=== PATIENT | male | born 1980 | race Caucasian/White ===

== ENCOUNTER 2016-08-03 16:06 | Emergency (ER) | payer MEDICAID | END 2016-08-03 20:30 | disposition home or self-care (01) | LOC: D.ER 16:06 | DX: M79.1 Myalgia (principal); I33.0 Acute and subacute infective endocarditis; F17.200 Nicotine dependence, unspecified, uncomplicated ==

== ENCOUNTER 2016-09-10 05:29 | Emergency (ER) | payer OTHER | END 2016-09-10 06:07 | disposition home or self-care (01) | LOC: D.ER 05:29 | DX: K08.89 Other specified disorders of teeth and supporting structures (principal); K02.9 Dental caries, unspecified; F17.200 Nicotine dependence, unspecified, uncomplicated ==

== ENCOUNTER 2016-10-02 12:00 | Emergency (ER) | payer MEDICAID | END 2016-10-02 12:30 | disposition left against medical advice (07) | LOC: D.ER 12:00 | DX: Z02.9 Encounter for administrative examinations, unspecified (principal) ==

== ENCOUNTER 2016-10-02 14:10 | Emergency (ER) | payer OTHER | END 2016-10-02 18:00 | disposition left against medical advice (07) | LOC: D.ER 14:10 | DX: Z02.9 Encounter for administrative examinations, unspecified (principal) ==

== ENCOUNTER 2016-10-04 08:51 | Emergency (ER) | payer OTHER | END 2016-10-04 09:39 | disposition home or self-care (01) | LOC: D.ER 08:51 | DX: K02.9 Dental caries, unspecified (principal); K08.89 Other specified disorders of teeth and supporting structures ==

== ENCOUNTER 2016-10-10 19:46 | Emergency (ER) | payer OTHER | END 2016-10-10 20:37 | disposition home or self-care (01) | LOC: D.ER 19:46 | DX: K02.9 Dental caries, unspecified (principal); K08.89 Other specified disorders of teeth and supporting structures; F17.200 Nicotine dependence, unspecified, uncomplicated ==

== ENCOUNTER 2016-10-29 22:46 | Emergency (ER) | payer OTHER | END 2016-10-30 01:00 | disposition home or self-care (01) | LOC: D.ER 22:46 | DX: S90.02XA Contusion of left ankle, initial encounter (principal); X58.XXXA Exposure to other specified factors, initial encounter; F17.200 Nicotine dependence, unspecified, uncomplicated ==

== ENCOUNTER 2016-11-17 20:08 | Emergency (ER) | payer OTHER | END 2016-11-17 23:40 | disposition home or self-care (01) | LOC: D.ER 20:08 | DX: M25.561 Pain in right knee (principal); F17.200 Nicotine dependence, unspecified, uncomplicated ==